=== PATIENT | male | born 1960 | race Caucasian/White ===

== ENCOUNTER 2018-12-28 11:34 | Emergency (ER) | payer BC ==
[2018-12-28 11:42] VITALS: BP 143/94; PULSE 60; TEMP 98; BMI 37.4
--- NOTE | 2018-12-28 12:29 | PDOC ---
History of Present Illness - General Chief Complaint: Blood Pressure Problem Stated Complaint: HYPERTENSION Time Seen by Provider: 12/28/18 12:18 - History of Present Illness Initial Comments: The pt is a 58M w/ a history of BPH and was was evaluated at [facility], told his BP was elevated and was given several doses of medications for a few days that he does not know the name of. Per his discharge paperwork, he was given Losartan which he only received that day, was not prescribed, and is not taking at home. Reports mild epigastric discomfort w/ 1 episode of NBNB vomiting s/p milk. He reports a history of GERD and was prescribed nexium previously but did not like it. Pt states he would like to be treated for his reflux symptoms and is concerned his HTN is causing his reflux symptoms. Currently the pt denies SUAZO, vision changes, chest pain, trouble breathing, fevers, or changes in sensation. 12/28/18 12:26 Past History - Past Medical History Allergies/Adverse Reactions: Allergies Allergy/AdvReac Type Severity Reaction Status Date / Time No Known Allergies Allergy Verified 12/28/18 11:42 Home Medications: Ambulatory Orders Mag Hydrox/Aluminum Hyd/Simeth [Maalox Maximum Strength Susp] 30 ml PO BID PRN # 1 bottle 12/28/18 Anemia: No Asthma: No Cancer: No Cardiac Disorders: No CVA: No COPD: No CHF: No Dementia: No Diabetes: No GI Disorders: No Disorders: No HTN: Yes Hypercholesterolemia: No Liver Disease: No Seizures: No Thyroid Disease: No - Surgical History Abdominal Surgery: No Appendectomy: No Cardiac Surgery: No Cholecystectomy: No Lung Surgery: No Neurologic Surgery: No Orthopedic Surgery: No - Psycho Social/Smoking Cessation Hx Smoking Status: No Smoking History: Never smoked Number of Cigarettes Smoked Daily: 0 Hx Alcohol Use: No Drug/Substance Use Hx: No Substance Use Type: None Hx Substance Use Treatment: No Review of Systems - Review of Systems Able to Perform ROS?: Yes Comments:: GENERAL/CONSTITUTIONAL: No fever or chills. No weakness HEAD, EYES, EARS, NOSE AND THROAT: No change in vision. No change in hearing. No sore throat CARDIOVASCULAR: No chest pain or shortness of breath RESPIRATORY: Denies cough, hemoptysis GASTROINTESTINAL: No diarrhea or constipation GENITOURINARY: No dysuria, frequency, or change in urination MUSCULOSKELETAL: No joint or muscle swelling or pain. No neck or back pain SKIN: No rash NEUROLOGIC: No vertigo, loss of consciousness, or change in strength/sensation ENDOCRINE: No increased thirst. No abnormal weight change HEMATOLOGIC/LYMPHATIC: No anemia, easy bleeding, or history of blood clots ALLERGIC/IMMUNOLOGIC: No hives or skin allergy 12/28/18 12:28 Is the patient limited Sami proficient: No *Physical Exam - Vital Signs Last Vital Signs Temp Pulse Resp BP Pulse Ox 98 F 60 18 143/94 99 12/28/18 11:39 12/28/18 11:39 12/28/18 11:39 12/28/18 11:39 12/28/18 11:39 - Physical Exam Comments: GENERAL: Awake, alert, and oriented to person/place/time, in no acute distress HEAD: No signs of trauma, normocephalic, atraumatic EYES: PERRLA, EOMI, sclera anicteric, conjunctiva clear ENT: Hearing grossly normal, nares patent, oropharynx clear without exudates. No uvular deviation. Moist mucosa LUNGS: No distress, speaks in full sentences, clear to auscultation bilaterally HEART: Regular rate and rhythm, normal S1 and S2, no murmurs appreciated, peripheral pulses normal and equal bilaterally ABDOMEN: Soft, nontender, normoactive bowel sounds. No guarding, no rebound EXTREMITIES: Normal inspection, Normal range of motion, no edema. No clubbing or cyanosis NEUROLOGICAL: Cranial nerves II through XII grossly intact. Normal speech, normal gait, no focal sensorimotor deficits SKIN: Warm, Dry 12/28/18 12:28 Medical Decision Making - Medical Decision Making The pt is a 58M w/ a history of BPH and GERD who presents for evaluation of reflux symptoms ED Course BP 143/94 w/o symptoms, will not treat at this time ECG ECG w/ sinus bradycardia; HR 51; QTc 390; left axis deviation; no JAMARI Maalox, Viscous lidocaine for symptomatic relief Plan for D/C w/ PCP f/u Saturday Discharge instructions and return precautions given Patient in agreement and verbalized understanding Dispo: Home 12/28/18 12:51 Discharge - Discharge Information Problems reviewed: Yes Clinical Impression/Diagnosis: GERD (gastroesophageal reflux disease) Qualifiers: Esophagitis presence: esophagitis presence not specified Qualified Code(s): K21.9 - Gastro-esophageal reflux disease without esophagitis Condition: Stable Disposition: HOME - Admission No - Additional Discharge Information Prescriptions: Mag Hydrox/Aluminum Hyd/Simeth [Maalox Maximum Strength Susp] 30 ml PO BID PRN # 1 bottle PRN Reason: reflux - Follow up/Referral - Patient Discharge Instructions Patient Printed Discharge Instructions: DI for Gastroesophageal Reflux Disease (GERD), DI for High Blood Pressure Additional Instructions: You were seen in the Emergency Department for evaluation of concern of high blood pressure. Your blood pressure does not need to be treated emergently today. Maintain your follow up with your primary care provider on Saturday. Review the handouts provided at discharge. Return to the Emergency Department if you develop fevers/chills, chest pain, trouble breathing, nausea/vomiting, dizziness, headache, worsening symptoms, or any new/concerning symptoms. It was a pleasure taking care of you today, we hope you feel better soon! -Dr. Fitzgerald and Dr. Bill - Post Discharge Activity Work/Back to School Note: Back to Work
[2018-12-28] MEDS ORDERED: MAG HYDROX/AL HYDROX/SIMETH 30 ML UNIT-DOSE CUP PO ONE (12:45)
[2018-12-28] MEDS ORDERED: LIDOCAINE VISCOUS 2% ORAL/TOP 20 ML UNIT-DOSE CUP MM ONE (12:45)
[2018-12-28] MEDS ORDERED: LIDOCAINE VISCOUS 2% ORAL/TOP 20 ML UNIT-DOSE CUP ONE (12:51)
[2018-12-28] MEDS ORDERED: MAG HYDROX/AL HYDROX/SIMETH 30 ML UNIT-DOSE CUP ONE (12:52)
--- NOTE | 2018-12-28 13:45 | PDOC ---
Documentation entered by Chris Ricks SCRIBE, acting as scribe for Bailee Fitzgearld MD. Bailee Fitzgerald MD: This documentation has been prepared by the Rambo osborn Daniel, SCRIBE, under my direction and personally reviewed by me in its entirety. I confirm that the documentation accurately reflects all work, treatment, procedures, and medical decision making performed by me. Attending Attestation - Resident Resident Name: Percy Bill - ED Attending Attestation I have performed the following: I have examined & evaluated the patient, The case was reviewed & discussed with the resident, I agree w/resident's findings & plan, Exceptions are as noted - HPI HPI: 12/28/18 12:33 The patient is a 58 year old male with a past medical history of BPH and GERD here today for evaluation of elevated blood pressure. The patient reports that he went to [facility] for BPH issues on (12/25/18), was discharged, and was told that his blood pressure was high. He states that this morning he was having GERD symptoms, similar to the symptoms he has had for many years. He was concerned that maybe his GERD has been 2/2 to elevated BP all of these years, prompting him to come to the ED for evaluation. He reports at times, his GERD is so bad that he vomits, but this has been ongoing for years. Today he vomited milk which he drank to try to quell the reflux He reports having an endoscopy many years ago which was reportedly "normal." He requests BP medication today prior to seeing his PCP on Saturday (12/30/18). He is currently asymptomatic. Patient denies headache, lightheadedness, focal weakness/numbness. Denies fever , chills. Denies diarrhea. Denies chest pain, shortness of breath, abdominal pain. Denies LE edema. Allergies: NKA Social history: Denies tobacco and illicit drug use. Confirms social alcohol use. - Physicial Exam PE: 12/28/18 12:33 GENERAL: Awake, alert, and fully oriented, in no acute distress EYES: PERRLA, EOMI, sclera anicteric, conjunctiva clear ENT: Oropharynx clear without exudates. Moist mucosa NECK: Normal ROM, supple, no lymphadenopathy, JVD, or masses LUNGS: Breath sounds equal, clear to auscultation bilaterally. No wheezes, and no crackles HEART: Regular rate and rhythm, normal S1 and S2, no murmurs, rubs or gallops ABDOMEN: Soft, nontender, normoactive bowel sounds. No guarding, no rebound. No masses EXTREMITIES: Normal range of motion, no edema. No clubbing or cyanosis. No cords , erythema, or tenderness BACK: No midline spinal tenderness in cervical/thoracic/lumbar region NEUROLOGICAL: Normal speech, cranial nerves intact, negative pronator drift, 5/ 5 strength in all 4 extremities, normal sensation to light touch in all 4 extremities, normal cerebellar exam, normal gait, normal reflexes and tone SKIN: Warm, Dry, normal turgor, no rashes or lesions noted. - Medical Decision Making 12/28/18 13:38 58-year-old male with a history of BPH and GERD presents the emergency department requesting blood pressure medications after he was told his blood pressure was elevated at a recent ER visit. Vitals here are unremarkable, blood pressure is in the 140 systolic. Exam within normal limits. Patient was concerned that his GERD symptoms could possibly be triggered by elevated blood pressure, however discussed with patient that his GERD is likely a separate issue. Patient was offered blood work including troponin, however he declined as he just had blood work from [place] emergency department. He brought his blood work here which we reviewed, and reveals only a mildly elevated creatinine to 1.5. He was agreeable to an EKG here, which was nonischemic. He requested medication for his GERD symptoms, and felt significantly better after Maalox and viscous lidocaine. He requests a prescription for Maalox which has been provided. Patient was reassured here that his blood pressure is not significantly elevated , and does not require emergency intervention at this time, especially since he has follow-up with his primary doctor in 2 days. Patient feels well and is eager for discharge home. Return precautions have been discussed. I discussed the physical exam findings, ancillary test results and final diagnoses with the patient. I answered all of the patient's questions. The patient was satisfied with the care received and felt comfortable with the discharge plan and treatment plan. The patient will call their primary care physician within 24 hours to arrange follow-up and will return to the Emergency Department with any new, persistent or worsening symptoms. Heart Score/ECG Review #1 12/28/18 13:38 Twelve-lead EKG was performed and reviewed by me. Sinus bradycardia, rate 51. Normal axis. No ST elevation. Isolated T wave inversion in lead III.
--- NOTE | 2018-12-29 15:57 | EKG ---
Test Reason : Blood Pressure : / mmHG Vent. Rate : 051 BPM Atrial Rate : 051 BPM P-R Int : 164 ms QRS Dur : 088 ms QT Int : 424 ms P-R-T Axes : 014 -19 018 degrees QTc Int : 390 ms SINUS BRADYCARDIA CANNOT RULE OUT ANTERIOR INFARCT , AGE UNDETERMINED ABNORMAL ECG WHEN COMPARED WITH ECG OF 25-SEP-2011 09:52, VENT. RATE HAS DECREASED BY 47 BPM Confirmed by LAYA STANLEY, TORRES ([id number]) on 12/29/2018 3:57:10 PM Referred By: Confirmed By:TORRES ASIF MD
== END 2018-12-28 13:29 | disposition home or self-care (01) ==
LOC: JER 11:34
DX: K21.9 Gastro-esophageal reflux disease without esophagitis (principal); I10 Essential (primary) hypertension
CPT/HCPCS: 93005; 93010; 99283-25

== ENCOUNTER 2018-12-31 19:46 | Emergency (ER) | payer BC ==
[2018-12-31] MEDS ORDERED: SODIUM CHLORIDE 1,000 ML IV STA (19:52)
[2018-12-31] MEDS ORDERED: KETOROLAC TROMETHAMINE 30 MG/1 ML VIAL IVPUSH ONE (19:52)
[2018-12-31] MEDS ORDERED: ONDANSETRON 4 MG/2 ML VIAL IVPUSH ONE (19:52)
[2018-12-31] MEDS ORDERED: PANTOPRAZOLE SODIUM 40 MG in SODIUM CHLORIDE 100 ML IVPB ONE (19:52)
--- NOTE | 2018-12-31 19:52 | PDOC ---
Rapid Medical Evaluation Time Seen by Provider: 12/31/18 19:50 Medical Evaluation: Allergies Allergy/AdvReac Type Severity Reaction Status Date / Time No Known Allergies Allergy Verified 12/28/18 11:42 12/31/18 19:50 Pt c/o:nausea and vomiting since yesterday, had similar s/s in the past but not as severe, no travel, seen by pmd today and was given a med for reflux Pt on brief exam: vss Pt ordered for: labs, urine, ivf, zofran, protonix, toradol Pt to proceed to the ED Discharge Disposition - Diagnosis Nausea & vomiting - Referrals - Patient Instructions - Post Discharge Activity
[2018-12-31 19:53] VITALS: BMI 43.2
[2018-12-31] MEDS ORDERED: PANTOPRAZOLE SODIUM 40 MG/100 ML BAG IVPB ONE (20:42)
[2018-12-31] MEDS ORDERED: KETOROLAC TROMETHAMINE 30 MG/1 ML VIAL ONE (20:42)
[2018-12-31] MEDS ORDERED: ONDANSETRON 4 MG/2 ML VIAL ONE (20:42)
--- NOTE | 2018-12-31 20:49 | PDOC ---
History of Present Illness - General Chief Complaint: Nausea/Vomiting Stated Complaint: VOMITTING/SHIVERING Time Seen by Provider: 12/31/18 19:50 - History of Present Illness Initial Comments: 12/31/18 20:45 CHIEF COMPLAINT: abdominal pain HISTORY OF PRESENT ILLNESS: 58 yo M with hx of HTN (diagnosed yesterday) [facility] with epigastric discomfort. Patient states he has had the sensation of "feeling hungry" for the past few days and then last night he began to vomiting persistently, approximately 6-8 times last night and today approximately every 5 minutes. He denies any diarrhea and states he had a normal bowel movement yesterday. He states he saw two doctors yesterday, his PCP Angel, urologist MD Estevez, and GI doctor, and was prescribed amlodipine (first dose taken today), tamsulosin for BPH, and today he saw Dr. Meade his GI doctor and was given omeprazole. Patient also notes that he was seen last Saturday at [facility] and had a normal abdominal ultrasound. Patient denies any fever, chills, diarrhea but does report tremors "after I eat." No recent travel or sick contacts. PAST MEDICAL HISTORY: HTN FAMILY HISTORY: Denies SOCIAL HISTORY: Denies tobacco, alcohol, illicit drug use. SURGICAL HISTORY: Denies ALLERGIES: No known drug allergies REVIEW OF SYSTEMS General/Constitutional: Denies fever or chills. Denies weakness, weight change. HEENT: Denies change in vision. Denies ear pain or discharge. Denies sore throat. Cardiovascular: Denies chest pain or shortness of breath. Respiratory: Denies cough, wheezing, or hemoptysis. Gastrointestinal: Vomiting x 2 days. Denies rectal bleeding. Genitourinary: Denies dysuria, frequency, or change in urination. Musculoskeletal: Denies joint or muscle swelling or pain. Denies neck or back pain. Skin and breasts: Denies rash or easy bruising. Neurologic: Denies headache, vertigo, loss of consciousness, or loss of sensation. Psychiatric: Denies depression or anxiety. PHYSICAL EXAM General Appearance: Well-appearing, appropriately dressed. No apparent distress , no intoxication. HEENT: EOMI, PERRLA, normal ENT inspection, normal voice, TMs normal, pharynx normal. No conjunctival pallor. No photophobia, scleral icterus. Neck: Supple. Trachea midline. No tenderness, rigidity, carotid bruit, stridor , lymphadenopathy, or thyromegaly. Respiratory/Chest: Lungs CTAB. No shortness of breath, chest tenderness, respiratory distress, accessory muscle use. No crackles, rales, rhonchi, stridor , wheezing, dullness Cardiovascular: RRR. S1, S2. No JVD, murmur, bradycardia, tachycardia. Vascular Pulses: Dorsalis-Pedis (R): 2+, Dorsalis-Pedis (L): 2+ Gastrointestinal/Abdominal: Normal bowel sounds. Abdomen soft, non-distended. No tenderness or rebound tenderness. No organomegaly, pulsatile mass, guarding , hernia, hepatomegaly, splenomegaly. Lymphatic: No adenopathy, tenderness. Musculoskeletal/Extremities: Normal inspection. FROM of all extremities, normal capillary refill. Pelvis Stable. No CVA tenderness. No tenderness to extremities, pedal edema, swelling, erythema or deformity. Integumentary: Appropriate color, dry, warm. 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 Fully oriented, alert. Appropriate mood/affect. Motor strength 5/5. No appreciable EOM palsy, facial droop or sensory deficit. 12/31/18 21:11 01/01/19 01:02 Past History - Past Medical History Allergies/Adverse Reactions: Allergies Allergy/AdvReac Type Severity Reaction Status Date / Time No Known Allergies Allergy Verified 12/31/18 19:53 Home Medications: Ambulatory Orders Mag Hydrox/Aluminum Hyd/Simeth [Maalox Maximum Strength Susp] 30 ml PO BID PRN # 1 bottle 12/28/18 Ondansetron HCl [Zofran] 4 mg PO 21 PRN #30 tablet 01/01/19 Anemia: No Asthma: No Cancer: No Cardiac Disorders: No CVA: No COPD: No CHF: No Dementia: No Diabetes: No GI Disorders: Yes (reflux) Disorders: No HTN: Yes Hypercholesterolemia: No Liver Disease: No Seizures: No Thyroid Disease: No Other medical history: prostate - Surgical History Abdominal Surgery: No Appendectomy: No Cardiac Surgery: No Cholecystectomy: No Lung Surgery: No Neurologic Surgery: No Orthopedic Surgery: No - Psycho Social/Smoking Cessation Hx Smoking Status: No Smoking History: Never smoked Number of Cigarettes Smoked Daily: 0 Hx Alcohol Use: No Drug/Substance Use Hx: No Substance Use Type: None Hx Substance Use Treatment: No *Physical Exam - Vital Signs Last Vital Signs Temp Pulse Resp BP Pulse Ox 97.7 F 80 18 154/89 98 12/31/18 19:51 12/31/18 19:51 12/31/18 19:51 12/31/18 19:51 12/31/18 19:51 ED Treatment Course - LABORATORY CBC & Chemistry Diagram: 12/31/18 20:54 12/31/18 20:54 Medical Decision Making - Medical Decision Making 01/01/19 01:03 58 yo M with hx of HTN (diagnosed yesterday) presents [facility] with epig[facility] discomfort. -labs -CTAP creatinine 1.4, bili 1.2, labs otherwise unremarkable CT unremarkable zofran rx sent to pharm Advised patient to take medication as prescribed and follow up with PCP tomorrow. Advised patient of signs and symptoms for return to ED. Patient verbalized understanding and agrees to plan. Discharge - Discharge Information Problems reviewed: Yes Clinical Impression/Diagnosis: Nausea & vomiting Qualifiers: Vomiting type: unspecified Vomiting Intractability: non-intractable Qualified Code(s): R11.2 - Nausea with vomiting, unspecified Condition: Stable Disposition: HOME - Admission No - Additional Discharge Information Prescriptions: Ondansetron HCl [Zofran] 4 mg PO 21 PRN #30 tablet PRN Reason: Nausea And/Or Vomiting - Follow up/Referral Referrals: Angel Ingram [Primary Care Provider] - - Patient Discharge Instructions Patient Printed Discharge Instructions: DI for Vomiting -- Adult Additional Instructions: As discussed, you must follow up with Dr. Ortiz's office tomorrow for further evaluation of your symptoms. If you develop chest pain, shortnes of breath, fever, chills, persistent vomiting, diarrhea, or any new or worsening symptoms, please return to the ER. - Post Discharge Activity
[2018-12-31 21:07] LABS: BASO % 0.5 % (0-2.0); EOS % 0.5 % (0-4.5); HEMOGLOBIN 15.9 GM/dL (11.7-16.9); LYMPH % 19.8 % (8-40); MCH 30.6 pg (25.7-33.7); MCHC 34.5 g/dl (32.0-35.9); MEAN CELL VOLUME 88.8 fl (80-96); MEAN PLT VOLUME 8.5 fl (7.5-11.1); MONO % 8.2 % (3.8-10.2); PLATELET COUNT 231 K/MM3 (134-434); RBC 5.18 M/mm3 (4.00-5.60); RDW 13.6 % (11.9-15.9); WHITE BLOOD COUNT 7.5 K/mm3 (4.0-10.0)
[2018-12-31] MEDS ORDERED: hydrOXYzine HCL 10 MG/5 ML LIQUID BULK BOTTLE PO ONE (21:12)
[2018-12-31 21:46] LABS: PH,URINE 7.5 (5.0-8.0); URINE APPEARANCE CLEAR; URINE BILIRUBIN NEGATIVE (NEGATIVE); URINE COLOR YELLOW; URINE GLUCOSE (UA) NEGATIVE (NEGATIVE); URINE KETONE NEGATIVE (NEGATIVE); URINE LEUK ESTERASE NEGATIVE (NEGATIVE); URINE NITRITE NEGATIVE (NEGATIVE); URINE PROTEIN NEGATIVE (NEGATIVE); URINE UROBILINOGEN 0.2 mg/dL (0.2-1.0)
[2018-12-31 21:52] LABS: ALBUMIN 4.2 g/dl (3.4-5.0); BILIRUBIN,TOTAL 1.2 mg/dL (0.2-1); BLOOD UREA NITROGEN 17.5 mg/dL (7-18); CALCIUM 9.4 mg/dL (8.5-10.1); CREATININE 1.4 mg/dL (0.55-1.3); MAGNESIUM 2.2 mg/dL (1.8-2.4); TOT PROT 7.7 g/dl (6.4-8.2)
[2018-12-31] MEDS ORDERED: hydrOXYzine PAMOATE 25 MG CAPSULE (FP) PO ONE (21:59)
[2018-12-31] MEDS ORDERED: hydrOXYzine HCL 50 MG/ML VIAL IM ONE (22:01)
[2018-12-31 23:04] VITALS: BP 132/85; PULSE 76; TEMP 98.1
== END 2019-01-01 01:08 | disposition home or self-care (01) ==
LOC: JER 19:46
PROC: 3E033GC Introduction of Other Therapeutic Substance into Peripheral Vein, Percutaneous Approach (ICD-10-PCS; principal; 2018-12-31)
PROC: 3E033GC Introduction of Other Therapeutic Substance into Peripheral Vein, Percutaneous Approach (ICD-10-PCS; 2018-12-31)
PROC: 3E0333Z Introduction of Anti-inflammatory into Peripheral Vein, Percutaneous Approach (ICD-10-PCS; 2018-12-31)
DX: K21.9 Gastro-esophageal reflux disease without esophagitis (principal); I10 Essential (primary) hypertension; R11.2 Nausea with vomiting, unspecified
CPT/HCPCS: 36415; 74176-TC; 80053; 81003; 83690; 83735; 85025; 99284-25; J7030

== ENCOUNTER 2020-11-04 12:29 | Observation (INO) | payer BC ==
[2020-11-04] MEDS ORDERED: FAMOTIDINE 20 MG TABLET PO ONE ×2 (13:13→13:23)
[2020-11-04] MEDS ORDERED: MAG HYDROX/AL HYDROX/SIMETH 30 ML UNIT-DOSE CUP PO ONE (13:13)
[2020-11-04] MEDS ORDERED: ACETAMINOPHEN 325 MG TABLET (FP) PO ONE (13:14)
[2020-11-04] MEDS ORDERED: ACETAMINOPHEN 500 MG TABLET (FP) PO ONE (13:23)
[2020-11-04] MEDS ORDERED: ASPIRIN 81 MG CHEWABLE TABLETS PO ONE (13:23)
[2020-11-04] MEDS ORDERED: NITROGLYCERIN SUBLINGUAL 1/150 0.4 MG TAB SL ONE (13:28)
[2020-11-04] MEDS ORDERED: FAMOTIDINE 20 MG TABLET ONE (13:35)
[2020-11-04] MEDS ORDERED: ASPIRIN 81 MG CHEWABLE TABLETS ONE (13:35)
[2020-11-04 14:15] LABS: BASO % 0.5 % (0-2.0); EOS % 0.5 % (0-4.5); HEMATOCRIT 44.1 % (35.4-49); HEMOGLOBIN 15.8 GM/dL (11.7-16.9); LYMPH % 13.9 % (8-40); MCH 31.3 pg (25.7-33.7); MCHC 35.8 g/dl (32.0-35.9); MEAN CELL VOLUME 87.4 fl (80-96); MEAN PLT VOLUME 8.8 fl (7.5-11.1); MONO % 8.1 % (3.8-10.2); PLATELET COUNT 194 10^3/uL (134-434); RBC 5.05 M/mm3 (4.00-5.60); RDW 13.8 % (11.9-15.9); WHITE BLOOD COUNT 5.9 K/mm3 (4.0-10.0)
[2020-11-04 14:37] LABS: CHLORIDE 98 mmol/L (98-107); SODIUM 133 mmol/L (136-145)
[2020-11-04 14:40] LABS: CALCIUM 8.6 mg/dL (8.5-10.1)
[2020-11-04 14:41] LABS: ANION GAP 10 MMOL/L (8-16); BLOOD UREA NITROGEN 12.7 mg/dL (7-18); CO2 25 mmol/L (21-32); GLUCOSE,RANDOM 86 mg/dL (74-106); LIPASE 106 U/L (73-393)
[2020-11-04 14:42] LABS: CREATININE 1.1 mg/dL (0.55-1.3)
[2020-11-04 14:43] LABS: SGOT/AST 18 U/L (15-37); SGPT/ALT 28 U/L (13-61)
[2020-11-04 14:45] LABS: BILIRUBIN,TOTAL 1.6 mg/dL (0.2-1); TOT PROT 7.8 g/dl (6.4-8.2)
[2020-11-04 14:46] LABS: ALK PHOS 104 U/L (45-117)
[2020-11-04 15:52] LABS: BILIRUBIN,DIRECT 0.3 mg/dL (0.0-0.2)
[2020-11-04] MEDS ORDERED: LIDOCAINE VISCOUS 2% ORAL/TOP 15 ML UNIT-DOSE CUP MM ONE (17:41)
[2020-11-04] MEDS ORDERED: PANTOPRAZOLE 40 MG TABLET PO ONE (17:41)
[2020-11-04] MEDS ORDERED: LIDOCAINE VISCOUS 2% ORAL/TOP 15 ML UNIT-DOSE CUP ONE (18:25)
[2020-11-04] MEDS ORDERED: PANTOPRAZOLE 40 MG TABLET ONE (18:25)
[2020-11-04 23:11] VITALS: BMI 36.2
[2020-11-05] MEDS ORDERED: MAG HYDROX/AL HYDROX/SIMETH 30 ML UNIT-DOSE CUP PO ONE (00:41)
[2020-11-05 05:40] VITALS: TEMP 98.2
[2020-11-05 07:53] LABS: BASO % 0.8 % (0-2.0); EOS % 2.4 % (0-4.5); HEMATOCRIT 42.9 % (35.4-49); HEMOGLOBIN 15.4 GM/dL (11.7-16.9); LYMPH % 30.5 % (8-40); MCH 31.5 pg (25.7-33.7); MCHC 35.9 g/dl (32.0-35.9); MEAN CELL VOLUME 87.8 fl (80-96); MEAN PLT VOLUME 8.4 fl (7.5-11.1); MONO % 10.2 % (3.8-10.2); NEUT % 56.1 % (42.8-82.8); PLATELET COUNT 197 10^3/uL (134-434); RBC 4.89 M/mm3 (4.00-5.60); RDW 13.6 % (11.9-15.9); WHITE BLOOD COUNT 5.1 K/mm3 (4.0-10.0)
[2020-11-05 08:20] LABS: ALBUMIN 3.7 g/dl (3.4-5.0); BLOOD UREA NITROGEN 14.6 mg/dL (7-18); MAGNESIUM 2.1 mg/dL (1.8-2.4)
[2020-11-05 08:22] LABS: BILIRUBIN,TOTAL 1.6 mg/dL (0.2-1); TOT PROT 7.2 g/dl (6.4-8.2)
[2020-11-05 08:23] LABS: CREATININE 1.3 mg/dL (0.55-1.3); PHOSPHOROUS 3.9 mg/dL (2.5-4.9)
[2020-11-05 09:57] VITALS: BP 132/80; PULSE 60
[2020-11-05] MEDS ORDERED: ASPIRIN COATED 81 MG TABLET.EC PO SCH (10:00)
== END 2020-11-05 15:23 | disposition home or self-care (01) ==
LOC: JER 12:29 → JERBED 15:20 → J4W 22:44
PROVIDERS: ADMIT Internal Medicine; ATTEND Internal Medicine
DX: R07.89 Other chest pain (principal); R06.00 Dyspnea, unspecified; R60.0 Localized edema; E66.9 Obesity, unspecified; Z68.36 Body mass index [BMI] 36.0-36.9, adult; I10 Essential (primary) hypertension; M10.9 Gout, unspecified; K21.9 Gastro-esophageal reflux disease without esophagitis
CPT/HCPCS: 36415; 71046-TC-FY; 80053; 80061; 82248; 82550; 83036; 83690; 83735; 84100; 84436; 84443; 84484; 85025; 93005; 93010; 93971-TC; 99285-25; C9803; G0378; U0003; U0005